=== PATIENT | female | born 1995 | race Two or more races ===

== ENCOUNTER 2017-10-07 18:05 | Emergency (ER) | payer SELFPAY ==
[2017-10-07 18:08] VITALS: BP 135/80; PULSE 75; RESP 16; TEMP 97.9; O2SAT 100
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
--- NOTE | 2017-10-08 01:18 | ED PDOC ---
- ECG O2 Sat by Pulse Oximetry: 100 (RA) Pulse Ox Interpretation: Normal Medical Decision Making Medical Decision Making: Receiving sign out: Patient signed out to me by Dr. Angel at 0118 pending clinical sobriety. Scribe Attestation: Documented by Adelaida Noyola acting as a scribe for Abner Kim MD. Provider Attestation: All medical record entries made by the Scribe were at my direction and personally dictated by me. I have reviewed the chart and agree that the record accurately reflects my personal performance of the history, physical exam, medical decision making, and the department course for this patient. I have also personally directed, reviewed, and agree with the discharge instructions and disposition. Disposition - Clinical Impression Clinical Impression: Alcohol abuse with intoxication - POA Present On Arrival: None - Disposition Disposition: Routine/Home Disposition Time: 01:29 Condition: STABLE Additional Instructions: Patient is medically stable for incarceration Instructions: Alcohol Intoxication (ED) Forms: [facility] (Tongan) Progress Note - Review of Symptoms Events since last encounter: Time: 0128 Patient awake, alert and oriented x 3 with steady gait. Patient to be released into police custody.
== END 2017-10-08 01:31 ==
LOC: H.ER 18:05
DX: F10.129 Alcohol abuse with intoxication, unspecified (principal)
CPT/HCPCS: 84703; 96372; 99282; G0480; J1630; J2060